=== PATIENT | male | born 1995 | race Caucasian/White ===

== ENCOUNTER → 2018-09-21 | Outpatient (CLI) | payer BC, OTHER ==
--- NOTE | 2018-09-22 08:45 | KCIC ---
Examination: MRI of the right shoulder without contrast HISTORY: History of right shoulder pain since February, decreased range of motion COMPARISON: None available TECHNIQUE: Multiplanar, multisequence MR imaging of the right shoulder performed without contrast FINDINGS: The long head of the biceps tendon is within the bicipital groove. The attachment of the subscapularis tendon grossly appears intact. There is a small focus of full-thickness tear or high-grade partial tear of the anterior fibers of the supraspinatus tendon at its junction with the subscapularis tendon best visualized on series 9 image #10 measuring 7.5 mm. Minimal amount of fluid identified in the subacromial subdeltoid bursa. Mild increased T2 signal identified in the greater tuberosity at the attachment of the supraspinatus tendon likely trabecular edema. The attachment of the infraspinatus, teres minor tendon grossly appears intact. The muscle bulk grossly appears unremarkable. The visualized labrum grossly appears unremarkable however evaluation is limited due to lack of contrast within the joint. Fat is present within the rotator interval. The acromion is type II. IMPRESSION: 1. Small focus of full-thickness tear or high-grade partial tear identified in the anterior fibers of the supraspinatus tendon with small amount of fluid in the subacromial /subdeltoid bursa. 2. Mild trabecular edema identified in the greater tuberosity at the attachment of the supraspinatus tendon. Electronically signed by: Azael Rios MD (09/22/2018 8:41 AM) [facility]
== END | disposition home or self-care (01) ==
LOC: KCIC MRI 16:10
PROVIDERS: ATTEND Orthopaedic Surgery
DX: R60.0 Localized edema (principal)
CPT/HCPCS: 73221

== ENCOUNTER → 2019-06-14 | Outpatient (CLI) | payer BC ==
[~2019-06-14] MED LIST: 0.9 % SODIUM CHLORIDE 10 ML DISP.SYRIN. ID ONE; GADOTERATE 5 MMOL/10ML VIAL. INT ART ONE; IOHEXOL 300 MG/ML 50 ML VIAL. INT ART ONE; LIDOCAINE 1% Multi-Dose 20 ML VIAL. ID ONE
--- NOTE | 2019-06-14 15:13 | KCIC ---
Study: Fluoroscopically guided arthrogram of the right shoulder for MRI Indication: Rotator cuff tear. Contrast: 5 cc Omnipaque 300 Technique: A timeout was performed prior to beginning the procedure in order to confirm patient identity and laterality of the injection. The risks, benefits and alternatives of the procedure were discussed. Utilizing sterile technique, fluoroscopic guidance and local anesthesia with 1% lidocaine, the right shoulder joint was accessed utilizing a 22-gauge, 3.5" spinal needle. Confirmation of needle position was obtained with a small amount of radiopaque contrast. Subsequently, 13 cc of a mixture containing 5 cc lidocaine, 10 cc saline and 0.1 cc Dotarem was injected. There were no immediate post procedure complications. Fluoroscopy time: 24 seconds Number of images obtained: 1 Impression: Technically successful fluoroscopic guided arthrogram of the right shoulder without immediate postprocedure complication. Electronically signed by: BERYL DE LUNA MD (06/14/2019 3:10 PM) [id number]
--- NOTE | 2019-06-14 16:00 | KCIC ---
STUDY: MRI arthrogram of the right shoulder INDICATION: Continued decreased range of motion and pain. History of prior rotator cuff repair. COMPARISON: Right shoulder MRI 09/21/2018 TECHNIQUE: Multiplanar MR imaging of the right shoulder performed after the intra-articular injection of contrast material. The injection portion of the procedure is detailed in a separate report. FINDINGS: The study is mildly degraded by motion artifact though diagnostic utility is still maintained. AC joint: Mild AC joint arthrosis. There is gadolinium-containing fluid distending the subacromial subdeltoid bursa. Rotator cuff: Sequela of prior rotator cuff repair. The repaired supraspinatus tendon is thinned and heterogeneous at and medial to the footprint. There does appear to be a small area of tendon discontinuity with a defect containing gadolinium seen at the mid supraspinatus on images 12 and 13 series 10. No significant tendon retraction. Thinning and heterogeneity also seen at the anterior infraspinatus tendon at the footprint but without discrete full-thickness tear in this region. The more posterior infraspinatus fibers are intact, as is the teres minor. The subscapularis is intact. Normal rotator cuff musculature bulk and signal. Labrum: No newly seen labral tear. Long head biceps tendon: Intact and normally located. Cartilage: No focal chondral defect identified. Bones: No acute fracture. No resorptive cystic change along the greater tuberosity suture anchors however some of the anchors appear to extend into the repaired tendon substance such as on image 15 series 10 and a component of retraction is not excluded. Impression: 1. Sequela of rotator cuff repair with thinning and heterogeneous signal of the supraspinatus and anterior infraspinatus at and medial to the footprint. More gadolinium-containing fluid within the subacromial subdeltoid bursa than typically expected and there is a suspected perforation of the supraspinatus tendon just medial to the footprint at its mid aspect, reference images 12 and 13 series 10. There is no significant tendon retraction. Rotator cuff muscular bulk is maintained. 2. The hubs of a few of the greater tuberosity suture anchors appear to project within the substance of the repaired tendon and a component of retraction is not entirely excluded, though note is made that there is no resorptive changes along the screw tips. Electronically signed by: BERYL DE LUNA MD (06/14/2019 3:57 PM) [email or web address]
== END | disposition home or self-care (01) ==
LOC: KCIC 13:15
PROVIDERS: ATTEND Orthopaedic Surgery
DX: M75.111 Incomplete rotator cuff tear or rupture of right shoulder, not specified as traumatic (principal)
CPT/HCPCS: 23350; 73222; 77002; A9575; Q9967; 73040